=== PATIENT | female | born 1950 | race Caucasian/White ===

== ENCOUNTER 2021-07-13 14:02 | Observation (INO) | payer OTHER, MEDICAID ==
[~2021-07-13] VITALS: Ht 157.5 cm; Wt 48.2 kg
--- NOTE | ~2021-07-13 | CON ---
[facility] [address] [place] [address] CONSULTATION Name: SALLIE CAMPOS Room: [address] M.R.#: [id number] Admission: 07/13/21 Attend Phys: Aleida Mcintosh Discharge: Date of : 48 Report #: [id number] THIS REPORT FOR: cc: Papa Galeas MD, Bruce D. MD Khosla, Parveen K. MD ~ DATE OF CONSULTATION: 07/13/2021 HISTORY OF PRESENT ILLNESS: A 71-year-old female patient was evaluated by me for episodes of right-sided numbness. She had one episode a few days ago and one today and she also has some speech difficulty with it. Speech difficulty resolved and episode also resolved. When I saw this patient, she was back to her baseline. She denied any prior history of stroke. REVIEW OF SYSTEMS: Positive for the fact that she had only 1 kidney. The other kidney, she lost to kidney stone. She has a history of non-Hodgkin lymphoma, hypothyroidism, hyperlipidemia, esophageal reflux disease. She had a history of cholecystectomy and hysterectomy. This was her relevant 14-point review of system. PAST MEDICAL HISTORY: Negative for TIA or stroke. FAMILY HISTORY: Unremarkable. SOCIAL HISTORY: She does not drink alcohol. PHYSICAL EXAMINATION: Indicated that this patient was alert, responsive, able to follow simple and complex commands. She said her speech, concentration, fund of knowledge was her baseline. She was alert and oriented. Cranial nerve examination was unremarkable. She had diminished sensation, but it was subjective on the right side. She did well with position sense. Reflexes and tone look symmetrical. There was no cerebellar sign. I could not look at the patient's fundus. Her hearing and vision was adequate. She has no thyroid mass or carotid bruit. Cardiac examination is unremarkable. No respiratory difficulty was noticed. LABORATORY DATA: Her GFR is pretty low at 17. I talked to this Emergency Room physician. Because of her kidney problem, I had suggested a noncontrast MRI of the brain and MRA of the head. That was done and that does not show any infarct, but it showed a question of disease in the right carotid artery, which will not correlate with the patient's symptoms of the right-sided numbness. Therefore, I have ordered a carotid [place] [address] CONSULTATION Name: SALLIE CAMPOS DONA Room: [address] Caleb Charles#: [id number] Admission: 07/13/21 Attend Phys: Aleida Mcintosh Discharge: Date of : 48 Report #: [id number] IMPRESSION: Transient ischemic attack-like symptoms. The finding on MRA on the right carotid is incidental, if it is real, because the patient's symptoms are on the right side. I ordered a carotid Doppler. We will see what it shows. If it does not show anything, which can explain the patient's symptoms, the patient may need some further workup depending upon how her exam is after that. She will also need an echocardiogram. I ordered a TSH, vitamin B12. She has a pretty significant renal problem and I will defer that evaluation and management to hospitalist. Dr. Chavez will follow up this patient with you from tomorrow and we will get the carotid Doppler and leave further recommendation depending upon the patient's neurological examination, and there is also a carotid Doppler at that time. Thank you very much for this referral. By: [id number] Pacheco MD /nt
[2021-07-13 14:11] VITALS: BP 134/63
[2021-07-13] MEDS ORDERED: ASA81BEC PO (14:15)
[2021-07-13] MEDS ORDERED: LIPITOR20 MG PO (14:15)
[2021-07-13] MEDS ORDERED: LEVO-T25 MCG PO (14:15)
[2021-07-13 14:42] LABS: ABSOLUTE BASOPHILS 0.1 thou/uL (0.0-0.2); ABSOLUTE EOSINOPHILS 0.2 thou/uL (0.0-0.7); ABSOLUTE LYMPHOCYTES 1.9 thou/uL (0.8-5.3); ABSOLUTE MONOCYTES 0.5 thou/uL (0.0-1.2); ABSOLUTE NEUTROPHILS 4.6 thou/uL (1.6-8.1); BASOPHILS 1.1 %; EOSINOPHILS 2.4 %; HEMATOCRIT 31.1 % (37.0-47.0); HEMOGLOBIN 10.3 gm/dL (12.0-15.0); LYMPHOCYTES 25.7 %; MCHC 33.2 g/dL (28.0-37.0); MCV 93.3 fL (80.0-100.0); MONOCYTES 7.4 %; MPV 8.2 fl. (7.2-11.1); NUCLEATED RBCS 0 /100WBC; PLATELET COUNT* 233 thou/uL (150-400); POLYS 63.4 %; RBC 3.33 mil/uL (4.20-5.00); RDW-CV 14.1 % (10.5-14.5); WBC 7.3 thou/uL (4.0-11.0)
--- NOTE | 2021-07-13 14:48 | NUR ---
TO CT 1435, DONE WITH CT 1440.
[2021-07-13 14:51] LABS: CALCIUM 8.8 mg/dL (8.5-10.1); CREATININE 2.9 mg/dL (0.6-1.3)
[2021-07-13 14:56] LABS: ALBUMIN 3.8 g/dL (3.4-5.0); TOTAL BILIRUBIN 0.4 mg/dL (<0.1-1.0); TOTAL PROTEIN 6.8 g/dL (6.4-8.2)
--- NOTE | 2021-07-13 14:57 | EKG ---
[place] [address] ELECTROCARDIOGRAM REPORT Name: SALLIE CAMPOS Room: [facility]#: [id number] Admission: 07/13/21 Attend Phys: Discharge: Date of : 48 Date of Service: 07/13/21 1424 Report #: [id number] THIS REPORT FOR: //name// [facility] ED Test Date: 2021-07-13 Test Time: 14:24:58 Pat Name: SALLIE CAMPOS Department: Room: Gender: [employer]: CD : 1950 Requested By: Emil Zamora Order Number: [id number] MD: Marlo Fraga Measurements Intervals [place] Rate: 82 P: 74 AL: 152 QRS: -12 QRSD: 99 T: 50 QT: 402 QTc: 470 Interpretive Statements Sinus rhythm Low voltage, precordial leads Abnormal R-wave progression, early transition Baseline wander in lead(s) II,III,aVF No previous ECG available for comparison Electronically Signed On 07-13-2021 14:56:54 CDT by Marlo Fraga [email or web address] <ELECTRONICALLY SIGNED> By: Marlo Fraga MD, [facility] 07/13/21 1456 1424 1424 Marlo Fraga MD, [facility] /EPI
--- NOTE | 2021-07-13 16:54 | NUR ---
TROPONIN DRAWN AND SENT TO LAB.
[2021-07-13 18:30] VITALS: BP 112/61
[2021-07-13 19:30] VITALS: BP 125/58
[2021-07-14 00:01] VITALS: BP 82/40
[2021-07-14 00:50] VITALS: BP 94/47
[2021-07-14 04:06] VITALS: BP 99/54
--- NOTE | 2021-07-14 04:51 | NUR ---
RECEIVED PT FROM ED AT APPROX 1930. PT IS AWAKE AND ORIENTED X4. PT IS NOT IN DISTRESS, NO DESATURATIONS NOTED ON ROOM AIR. PT IS TRACING SR ON THE SETTER HELPER. NIH OF 1 CHARTED. NO ACUTE CHANGES THIS SHIFT. CALL LIGHT WITHIN REACH. HOURLY ROUNDING DONE FOR PT SAFETY. HIGH FALL PRECAUTIONS IN PLACE.
[2021-07-14] MEDS ORDERED: LEVOTHYROXINE125 MC1 PO (07:56)
[2021-07-14 08:20] VITALS: BP 109/61
[2021-07-14 08:55] LABS: HEMATOCRIT 29.8 % (37.0-47.0); HEMOGLOBIN 10.2 gm/dL (12.0-15.0); MCH 31.6 pg (26.0-34.0); MCHC 34.1 g/dL (28.0-37.0); MCV 92.8 fL (80.0-100.0); MPV 8.2 fl. (7.2-11.1); RBC 3.21 mil/uL (4.20-5.00); RDW-CV 14.3 % (10.5-14.5); WBC 4.9 thou/uL (4.0-11.0)
[2021-07-14 09:08] LABS: ANION GAP 9 mmol/L (7-16); BUN 29 mg/dL (7-18); CALCIUM 8.8 mg/dL (8.5-10.1); CHLORIDE 104 mmol/L (98-107); CHOLESTEROL 194 mg/dL (<200); CO2 26 mmol/L (21-32); CREATININE 2.8 mg/dL (0.6-1.3); GLUCOSE 83 mg/dL (70-99); HDL CHOLESTEROL 57 mg/dL (>40); LDL CHOLESTEROL 125 mg/dL (<100); SODIUM 139 mmol/L (136-145); TC:HDL 3.4 Ratio (Not establshd); TRIGLYCERIDE 64 mg/dL (<150); VLDL 13 mg/dL (<40)
[2021-07-14 09:11] LABS: SERUM ASSESSMENT Clear
[2021-07-14 12:00] VITALS: BP 114/63
--- NOTE | 2021-07-14 14:14 | NUR ---
CM ASSESSMENT: PT A&O, NORMALLLY INDEPENDENT WITH ADL'S, ACTIVE AND DRIVES. PT RESIDES AT HOME AND HER 7 YO GRANDAUGHTER LIVES WITH HER. PT INFORMS THAT HER OTHER DAUGHTER IS PROVIDING CARES FOR HER GRANDDAUGHTER WHILE SHE IS HER INPT, AND IS ABLE TO CONTINUE DOING SO. PT USES 0. PT HAS PAST HX OF HH MANY YEARS AGO. PT HAS 0 HX OF SNF. PT MAY BENEFIT FROM HH AT D/C. IF ORDERED PLEASE CALL AND FAX FACESHEET, H&P, AND D/C ORDERS TO [facility]. CM WILL REMAIN AVAILABLE TO ASSSIT AND FOLLOW NEEDED. [facility] PHONE: [phone] FAX: [phone]
[2021-07-14 15:08] LABS: APTT 26.5 Seconds (25.0-31.3); PROTIME 10.4 Seconds (9.20-11.50)
--- NOTE | 2021-07-14 16:00 | 2DMMODE ---
[place] [address] 2 D/M-MODE ECHOCARDIOGRAM Name: SALLIE CAMPOS Room: [address] Caleb Charles#: [id number] Admission: 07/13/21 Attend Phys: Mark Goff Discharge: Date of : 48 Date of Service: 07/14/21 1600 Report #: [id number] THIS REPORT FOR: cc: Papa Galeas MD, Bruce D. MD Blick,Marlo Cruz MD [facility] ~ APPROVED REPORT Study performed: 07/14/2021 14:55:42 EXAM: Comprehensive 2D, Doppler, and color-flow Echocardiogram Patient Location: In-Patient Room #: 222 Status: routine BSA: 1.46 HR: 73 bpm BP: 114/63 mmHg Rhythm: NSR Other Information Study Quality: Good Indications CVA/TIA Echo Enhancing Agent Comments: Bubble study not done due to no IV access. 2D Dimensions IVSd: 8.71 (7-11mm) LVOT Diam: 19.76 (18-24mm) LVDd: 35.09 mm PWd: 8.95 (7-11mm) Ascending Ao: 32.28 (22-36mm) LVDs: 23.52 (25-40mm) Aortic Root: 31.38 mm Volumes Left Atrial Volume (Systole) LA ESV Index: 22.80 mL/m2 Aortic Valve AoV Peak Mayank.: 1.00 m/s AO Peak Gr.: 3.99 mmHg LVOT Max P.05 mmHg AO Mean Gr.: 2.35 mmHg LVOT Mean P.38 mmHg LVOT Max V: 0.87 m/[place] [address] 2 D/M-MODE ECHOCARDIOGRAM Name: SALLIE CAMPOS DONA Room: [address] Caleb M.R.#: [id number] Admission: 07/13/21 Attend Phys: Mark Goff Discharge: Date of : 48 Date of Service: 07/14/21 1600 Report #: [id number] AO V2 VTI: 20.98 cm LVOT Mean V: 0.53 m/s JOYCE (VTI): 2.64 cm2 LVOT V1 VTI: 18.07 cm Mitral Valve E/A Ratio: 1.02 MV Decel. Time: 215.48 ms MV E Max Mayank.: 0.60 m/s MV PHT: 62.49 ms MVA (PHT): 3.52 cm2 TDI E/Lateral E': 6.00 E/Medial E': 6.00 Medial E' Mayank.: 0.10 m/s Lateral E' Mayank.: 0.10 m/s Pulmonary Valve PV Peak Mayank.: 0.73 m/s PV Peak Gr.: 2.12 mmHg Tricuspid Valve RAP Estimate: 5.00 mmHg TR Peak Gr.: 16.69 mmHg RVSP: 21.00 mmHg PA Pressure: 21.00 mmHg Left Ventricle The left ventricle is normal size. There is normal LV segmental wall motion. There is normal left ventricular wall thickness. Left ventricular systolic function is normal. The left ventricular ejection fraction is within the normal range. LVEF is 60-65%. The left ventricular diastolic function is normal. Right Ventricle The right ventricle is normal size. The right ventricular systolic function is normal. Atria The left atrium size is normal. The right atrium size is normal. Aortic Valve The aortic valve is normal in structure. No aortic regurgitation is present. There is no aortic valvular stenosis. Mitral Valve The mitral valve is normal in structure. Mild mitral regurgitation. No evidence [place] [address] 2 D/M-MODE ECHOCARDIOGRAM Name: SALLIE CMAPOS Room: [address] M.R.#: [id number] Admission: 07/13/21 Attend Phys: Mark Goff Discharge: Date of : 48 Date of Service: 07/14/21 1600 Report #: [id number] Tricuspid Valve The tricuspid valve is normal in structure. Mild tricuspid regurgitation. No pulmonary hypertension. Pulmonic Valve Pulmonic valve is not well visualized. There is no pulmonic valvular regurgitation. Great Vessels The aortic root is normal in size. IVC is normal in size and collapses >50% with inspiration. Pericardium There is no pericardial effusion. <Conclusion> LVEF is 60-65%. Mild mitral regurgitation. Mild tricuspid regurgitation. No pulmonary hypertension. <ELECTRONICALLY SIGNED> By: Marlo Fraga MD, FACC 07/14/21 1600 1600 99 Marlo Fraga MD, FACC /INF
[2021-07-14 20:00] VITALS: BP 115/62
[2021-07-15] VITALS: BP 102/61
[2021-07-15 03:47] LABS: HEMATOCRIT 29.2 % (37.0-47.0); HEMOGLOBIN 9.7 gm/dL (12.0-15.0); MCH 31.1 pg (26.0-34.0); MCHC 33.2 g/dL (28.0-37.0); MCV 93.6 fL (80.0-100.0); MPV 8.1 fl. (7.2-11.1); RBC 3.12 mil/uL (4.20-5.00); RDW-CV 14.3 % (10.5-14.5); WBC 5.8 thou/uL (4.0-11.0)
[2021-07-15 04:00] VITALS: BP 110/61
[2021-07-15 04:07] LABS: CALCIUM 8.5 mg/dL (8.5-10.1); CREATININE 2.7 mg/dL (0.6-1.3); POTASSIUM 4.8 mmol/L (3.5-5.1)
--- NOTE | 2021-07-15 05:59 | NUR ---
REMAINS A&O X4. UP AD JULI. WORKERS COMPENSATION COORDINATOR TRACING SR. NO IV ACCESS. ORDER WRITTEN ON CHART.
[2021-07-15 07:40] VITALS: BP 94/59
[2021-07-15] MEDS ORDERED: LIPITOR40 MG PO (08:00)
[2021-07-15] MEDS ORDERED: PLAVIX 75 MG TA75 MG PO ×2 (08:00→08:46)
[2021-07-15 08:43] VITALS: BP 94/59
--- NOTE | 2021-07-15 09:11 | NUR ---
PT GIVEN DISCHARGE INFORMATION, CARE NOTES, AND PRESCRIPTIONS FAXED. HEART MONITOR REMOVED. PT BELONGINGS GATHERED. PT LEFT VIA WHEELCHAIR WITH NURSING STAFF TO HOME. HOURLY ROUNDING COMPLETED.
[2021-07-16 05:36] LABS: GLYCOHEMOGLOBIN (HGB A1C) 5.4 % (4.8-5.6)
[2021-07-18 17:06] LABS: ANA INTERPRETATION Negative (())
== END 2021-07-15 09:20 | disposition home or self-care (01) ==
LOC: M.ERS 14:02 → M.2W 15:21 → M.TBA-ER 15:21 → M.2W 19:06
PROVIDERS: Emergency Medicine Emergency Medical Services; Family Medicine; Psychiatry & Neurology Neuromuscular Medicine; ADMIT Internal Medicine; ATTEND Internal Medicine
DX: R20.2 Paresthesia of skin (principal); R47.01 Aphasia; Z20.822 Contact with and (suspected) exposure to COVID-19; G45.9 Transient cerebral ischemic attack, unspecified; I67.89 Other cerebrovascular disease; R20.0 Anesthesia of skin; N17.9 Acute kidney failure, unspecified; E03.9 Hypothyroidism, unspecified; E78.5 Hyperlipidemia, unspecified; K21.9 Gastro-esophageal reflux disease without esophagitis; Z85.72 Personal history of non-Hodgkin lymphomas; Z87.442 Personal history of urinary calculi; Z79.82 Long term (current) use of aspirin; Z79.899 Other long term (current) drug therapy; Z79.02 Long term (current) use of antithrombotics/antiplatelets; Z88.2 Allergy status to sulfonamides; Z88.8 Allergy status to other drugs, medicaments and biological substances

== ENCOUNTER → 2021-07-20 | Outpatient (CLI) | payer OTHER, MEDICAID ==
[~2021-07-20] MED LIST: ASA81BEC PO; LEVO-T25 MCG PO; LEVOTHYROXINE125 MC1 PO; LIPITOR20 MG PO; LIPITOR40 MG PO; PLAVIX 75 MG TA75 MG PO
== END ==
LOC: M.ULTRA 07-07 14:37 → M.RAD 09:00
PROVIDERS: ATTEND Nurse Practitioner Family
DX: Z13.820 Encounter for screening for osteoporosis (principal); M79.89 Other specified soft tissue disorders; M81.0 Age-related osteoporosis without current pathological fracture

== ENCOUNTER → 2021-10-13 | Outpatient (CLI) | payer OTHER, MEDICAID | LOC: M.RAD 08:43 → M.ULTRA 09:30 | PROVIDERS: ATTEND Internal Medicine Nephrology | DX: Z12.31 Encounter for screening mammogram for malignant neoplasm of breast (principal); N26.1 Atrophy of kidney (terminal); N18.4 Chronic kidney disease, stage 4 (severe); Z90.5 Acquired absence of kidney ==